=== PATIENT | female | born 1980 | race Two or more races ===

== ENCOUNTER → 2025-03-21 | Outpatient (CLI) | payer MEDICAID, SELFPAY ==
--- NOTE | 2025-03-21 13:33 | CT_ITS ---
PROCEDURE: LIMITED CHEST CT CARDIAC ONLY 03/21/2025 REASON FOR EXAM: CHEST PAIN TECHNIQUE: LIMITED CHEST CT CARDIAC ONLY One or more dose reduction techniques were used (e.g., Automated exposure control, adjustment of the mA and/or kV according to patient size, use of iterative reconstruction technique). 100 mL of Isovue 370 was injected intravenously. RADIATION DOSE SUMMARY: CTDlvol: 67 mGy DLP: 2723.06 mGycm COMPARISON: None FINDINGS: Calcification of the circumflex artery. The lungs are clear. CT/Limited Chest CT Cardiac Only IMPRESSION: Calcification of the circumflex artery. The lungs are clear. Reading Location: [place] [id number]
[2025-03-21 13:40] VITALS: BP 134/70; PULSE 65; RESP 16; O2SAT 99; BMI 42.3
[2025-03-21 13:54] VITALS: PULSE 66
[2025-03-21] MEDS: Nitroglycerin SL (ED/IMG/CATH) 0.4 MG TABLET SL (13:54)
[2025-03-21 13:55] VITALS: BP 128/77; PULSE 72; RESP 16; O2SAT 98
[2025-03-21 14:05] LABS: CREATININE FINGERSTICK < 1.0 mg/dL (0.55-1.02); EGFR FINGERSTICK > 60.0000 mL/min (>60)
--- NOTE | 2025-03-21 16:44 | CCTA.WCONT ---
CCTA w/Cont Coronary Arteries Date of Study:: 03/21/25 Chest pain Coronary Calcium Scoring: High-resolution Computed Tomographic imaging of the chest was performed on [03/21/2025], with particular attention paid to the coronary arteries. Intravenous contrast agent was administered per protocol and images reconstructed and displayed. LEFT MAIN CORONARY ARTERY: Arises from the left coronary cusp and bifurcates to left anterior descending artery and left circumflex artery no significant stenosis is noted. [] LEFT ANTERIOR DESCENDING CORONARY ARTERY: Arises from the left main coronary artery and continues towards the apex of the left ventricle. No significant atherosclerotic plaquing is noted in this vessel. [] LEFT CIRCUMFLEX CORONARY ARTERY: Nondominant vessel with focal mid segment atherosclerotic plaquing noted. No significant obstruction noted. [] RIGHT CORONARY ARTERY: Dominant coronary artery with no high-grade stenosis noted no significant plaque present. [] THORACIC AORTA: [] PULMONARY ARTERY: [] LEFT ATRIUM/APPENDAGE: [] MITRAL VALVE: [] AORTIC VALVE: [] LEFT VENTRICLE: [] CORONARY CALCIUM SCORE: [] Calcium Scoring Interpretation: Different methods to categorize the overall amount of coronary plaque. Overall amount CAC SIS Visual of coronary plaque P1 Mild -100 <2 1-2 vessels with mild amount of plaque P2 Moderate 101-300 3-4 1-2 vessels with moderate amount, 3 vessels with mild amount of plaque P3 Severe 301-999 5-7 3 vessels with moderate amount, 1 vessel with severe amount of plaque P4 Extensive >1000 >8 2-3 vessels with severe amount of plaque Conclusion: Mild focal nonobstructive atherosclerotic plaquing noted in the circumflex artery.
== END | disposition home or self-care (01) ==
PROVIDERS: Referring Provider Internal Medicine Cardiovascular Disease; Visit Provider Internal Medicine Cardiovascular Disease
DX: R07.9 Chest pain, unspecified (principal)
CPT/HCPCS: 75574; 76380; Q9967